=== PATIENT | male | born 1935 | race Caucasian/White ===

== ENCOUNTER 2020-01-28 15:46 | Emergency (ER) | payer MEDICARE, BC ==
[~2020-01-28] VITALS: Ht 180.3 cm; Wt 90.9 kg
[~2020-01-28 15:46] MED LIST: ASPI-1140 PO; DIPH-423 PO; DULO20CA50 PO; DYR50C PO; FENT1PAT11 TD; FOSI20TA97 PO; PANT40TA39 PO; POLY17PO10 PO; SENNA PO; TEST75GE TD; WARF5TAB PO; [UNRECOGNIZED DRUG - OTHER] PO
[2020-01-28] MEDS ORDERED: CARV3.12 PO (16:04)
[2020-01-28] MEDS ORDERED: TRAM50TA2 PO (16:04)
[2020-01-28] MEDS ORDERED: ondansetron/PF 4mg/2ml inj IV ONE (16:10)
[2020-01-28] MEDS ORDERED: normal saline 1000ML IV soln IVB ONE (16:10)
--- NOTE | 2020-01-28 16:35 | NUR ---
Pt attempted to provide urine sample for UA, unable to produce. Pt transported to CT will re-try after fluids have been given.
[2020-01-28 16:37] LABS: BASOPHILS % (AUTO) 0.2 % (0-1); EOSINOPHILS # (AUTO) 0.1 X10'3 (0-0.9); EOSINOPHILS % (AUTO) 0.6 % (0-6); HEMATOCRIT 50.8 % (42.0-52.0); HEMOGLOBIN 16.7 g/dl (14.0-17.9); LYMPHOCYTES # (AUTO) 1.4 X10'3 (1.1-4.8); LYMPHOCYTES % (AUTO) 7.1 % (21-51); MEAN CORPUSCULAR HGB CONC 32.8 g/dL (33.0-36.5); MEAN CORPUSCULAR VOLUME 97.6 FL (78-98); MONOCYTES # (AUTO) 1.3 X10'3 (0-0.9); MONOCYTES % (AUTO) 6.5 % (2-12); NEUTROPHILS # (AUTO) 17.3 X10'3 (1.8-7.7); NEUTROPHILS % (AUTO) 85.6 % (42-75); PLATELET COUNT 225 X10'3 (140-440); RED BLOOD COUNT 5.21 X10'6 (4.70-6.10); RED CELL DISTRIBUTION WIDTH 13.6 % (11.5-14.5); WHITE BLOOD COUNT 20.2 X10'3 (4.5-11.0)
[2020-01-28 16:49] LABS: ALANINE AMINOTRANSFERASE 14 U/L (12-78); ALBUMIN 3.8 G/DL (3.4-5.0); ALKALINE PHOSPHATASE 75 IU/L (46-116); ANION GAP 12 (8-16); ASPARTATE AMINO TRANSFERASE 21 U/L (10-37); BILIRUBIN,TOTAL 0.4 MG/DL (0.1-1.0); BLOOD UREA NITROGEN 17 MG/DL (7-18); BUN/CREATININE RATIO 13.6 (5.4-32.0); CALCIUM 9.3 MG/DL (8.5-10.1); CHLORIDE 105 MMOL/L (99-107); CREATININE 1.25 MG/DL (0.60-1.10); GLUCOSE 165 MG/DL (70-104); LIPASE 172 U/L (73-393); POTASSIUM 3.9 MMOL/L (3.5-5.1); SODIUM 142 MMOL/L (135-145); TOTAL CARBON DIOXIDE 24.8 MMOL/L (24-32); TOTAL PROTEIN 7.7 G/DL (6.4-8.2); eGFR 55 ML/MIN
--- NOTE | 2020-01-28 16:51 | NUR ---
Pt returned from CT. IV fluids restarted.
[2020-01-28 17:09] LABS: PLATELET ESTIMATE NORMAL; TOTAL CELLS COUNTED 100; TOXIC VACUOLATION 1+
[2020-01-28 17:36] LABS: CLARITY,URINE CLEAR (Clear); COLOR,URINE YELLOW (Yellow); GLUCOSE, URINE NEGATIVE (Neg); KETONES,URINE NEGATIVE (Neg); LEUKOCYTE ESTERASE ,URINE NEGATIVE (Neg); NITRITES, URINE NEGATIVE (Neg); OCCULT BLOOD,URINE TRACE-INTACT (Neg); PH,URINE 5.5 (4.8-8.0); PROTEIN,URINE TRACE mg/dl (Neg); UROBILINOGEN,URINE 0.2 E.U/dL (0.2-1.0)
[2020-01-28 17:42] LABS: UA COLLECTION TYPE STRAIGHT CATH
[2020-01-28 17:43] LABS: BACTERIA,URINE NONE SEEN /HPF (Neg); HYALINE CASTS 0-3 /LPF (NEGATIVE); MUCUS STRANDS FEW /LPF (Neg); SQUAMOUS EPITHELIAL CELL,UR NONE SEEN /LPF (FEW); TRANSITIONAL EPI CELLS,URINE FEW /HPF; WBC,URINE 0-4 /HPF (0-4)
[2020-01-28 17:50] VITALS: BP 132/62
[2020-01-28] MEDS ORDERED: ONDA8TAB13 PO (17:58)
== END 2020-01-28 18:20 | disposition home or self-care (01) ==
LOC: ER 15:46
DX: R11.10 Vomiting, unspecified (principal); R19.7 Diarrhea, unspecified; I10 Essential (primary) hypertension; K21.9 Gastro-esophageal reflux disease without esophagitis; M19.90 Unspecified osteoarthritis, unspecified site; G89.29 Other chronic pain; Z86.73 Personal history of transient ischemic attack (TIA), and cerebral infarction without residual deficits; Z86.718 Personal history of other venous thrombosis and embolism; Z90.49 Acquired absence of other specified parts of digestive tract; Z79.82 Long term (current) use of aspirin; Z79.899 Other long term (current) drug therapy; Z79.01 Long term (current) use of anticoagulants
CPT/HCPCS: 36415; 74176; 80053; 81001; 83690; 85025; 96374; 99284; J2405; J7030

== ENCOUNTER 2022-08-14 07:09 | Emergency (ER) | payer MEDICARE, BC ==
[~2022-08-14] VITALS: Ht 180.3 cm; Wt 102.3 kg
[~2022-08-14 07:09] MED LIST changes: -ASPI-1140 PO; +CARV3.12 PO; -DIPH-423 PO; -DYR50C PO; -FENT1PAT11 TD; +ONDA8TAB13 PO; -TEST75GE TD; +TRAM50TA2 PO; -WARF5TAB PO; +WARF5TAB2 PO
[2022-08-14] MEDS ORDERED: bacitracin 15gm ointment TP ONE (07:50)
[2022-08-14 08:11] VITALS: BP 146/68
== END 2022-08-14 08:23 | disposition home or self-care (01) ==
LOC: ER 07:09
DX: S51.012A Laceration without foreign body of left elbow, initial encounter (principal); S80.811A Abrasion, right lower leg, initial encounter; I11.9 Hypertensive heart disease without heart failure; K21.9 Gastro-esophageal reflux disease without esophagitis; F31.9 Bipolar disorder, unspecified; Z90.49 Acquired absence of other specified parts of digestive tract; Z88.8 Allergy status to other drugs, medicaments and biological substances; Z79.899 Other long term (current) drug therapy; W19.XXXA Unspecified fall, initial encounter; Y93.89 Activity, other specified; Y92.89 Other specified places as the place of occurrence of the external cause; Y99.8 Other external cause status
CPT/HCPCS: 99284; A6223; A6449